=== PATIENT | male | born 1975 | race Caucasian/White ===

== ENCOUNTER 2024-02-25 18:11 | Emergency (ER) | payer SELFPAY ==
[~2024-02-25] VITALS: Ht 167.6 cm; Wt 81.6 kg
[2024-02-25 18:24] VITALS: BP 120/87; PULSE 108; RESP 20; TEMP 98; O2SAT 99
[2024-02-25] MEDS: LIDOCAINE/EPI 1% 1:100000 20 ML VIAL INJ ONE (18:57)
== END 2024-02-25 20:23 | disposition home or self-care (01) ==
LOC: MED 18:11
DX: S71.111A Laceration without foreign body, right thigh, initial encounter (principal); W22.8XXA Striking against or struck by other objects, initial encounter; Y93.55 Activity, bike riding; Y92.89 Other specified places as the place of occurrence of the external cause; Y99.8 Other external cause status
CPT/HCPCS: 12002; 73552; 90471; 90715; 99283; J2001; Q0092